=== PATIENT | female | born 1990 | race Caucasian/White ===

== ENCOUNTER 2024-09-23 12:52 | Emergency (ER) | payer OTHER, SELFPAY ==
--- NOTE | ~2024-09-23 | XR_ITS ---
XR hand RT min 3V 09/23/2024 13:30 INDICATION: Right hand pain with swelling. PROCEDURE: 3 views right hand COMPARISON: No prior studies for comparison. FINDINGS: Fracture, dislocation or subluxation is not identified. The soft tissues appear within norm al limits. No foreign bodies are identified. IMPRESSION: 1: NO ACUTE BONE OR JOINT ABNORMALITY IDENTIFIED. Reviewed, dictated and finalized at location A.
--- NOTE | 2024-09-23 13:05 | ED_ITS ---
HPI - Extremity Problem General Chief complaint: Extremity Injury, Upper Stated complaint: swollen rt arm Time Seen by Provider: 09/23/24 13:04 Source: patient Mode of arrival: ambulatory Limitations: no limitations History of Present Illness HPI Narrative: Samantha is a 33-year-old female patient presenting to the clinic today with complaints of right shoulder, elbow, wrist, and hand pain. 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 No known injury to the extremity however she has had previous fracture in her hand. Has swelling and bruising to the right hand. Denies any known injury recently. Has a PCP appointment on October 04 to establish care. Related Data Allergies Allergy/AdvReac Type Severity Reaction Status Date / Time latex Allergy Intermediate Rash Verified 09/23/24 13:18 Review of Systems Review of Systems: Pertinent positives per HPI. Patient denies any fever, chills, rash, headache, visual changes, dizziness, cough, runny nose, sore throat, shortness of breath, chest pain, palpitations, nausea, vomiting, diarrhea, constipation, abdominal pa in, or any urinary issues. PMFSH Comments At the time of my signature, I reviewed and agree with the nursing past medical, surgical, social, and family history. There is no relevant family history pertinent to the patient complaint. Exam Narrative: General: Well-developed, well nourished, in no apparent distress Head: Normocephalic, atraumatic. Cardio: Regular rate and rhythm, s1 and s2 normal, no murmur appreciated. Resp: Clear to auscultation bilaterally, no rhonchi, rales, wheezing or rubs. Musculoskeletal: No deformity,tender to palpation over the posterior lateral cervical portion of the trapezius musculature, pain with turning her head to the right side against resistance, no pain when turning her head to the left side against resistance, positive Tinel's in the elbow and wrist, tenderness to palpation over the anterior shoulder, pain to the posterior and anterior shoulder with empty can, full can, cross arm, and posterior reach, pain in her shoulder with raising her arm above her head, limited range of motion due to pain, hand grasp is weaker and the right hand when compared to the left hand, peripheral pulse strong, no edema, no cyanosis, normal gait and station Course Course Emergency Course: Portions of this record may have been created with voice recognition software. Level of Care: Express Care Visit Vital Signs Vital signs: Vital Signs Temperature 36.6 C 09/23/24 13:14 Pulse Rate 78 09/23/24 13:14 Respiratory Rate 16 09/23/24 13:14 Blood Pressure 143/73 H 09/23/24 13:14 Pulse Oximetry 100 09/23/24 13:14 Oxygen Delivery Room Air 09/23/24 13:14 Temperature 36.6 C 09/23/24 13:14 Pulse Rate 78 09/23/24 13:14 Respiratory Rate 16 09/23/24 13:14 Blood Pressure 143/73 H 09/23/24 13:14 Pulse Oximetry 100 09/23/24 13:14 Oxygen Delivery Room Air 09/23/24 13:14 Vital signs reviewed MDM - Extremity (Nontraumatic) MDM Narrative Medical decision making narrative: At the time of visit patient is resting comfortably on the exam table. Patient appears to be nontoxic. Diagnostics: X-ray the right hand was performed due to pain, bruising, and swelling. X-ray was negative for any acute fracture or malalignment. Plan: I suspect patient a posterior lateral cervical trapezius strain, shoulder tendinitis, wrist tendinitis, and pain/hand swelling. May need further testing for carpal tunnel syndrome. Recommend wearing a cock-up splint and taking Medrol Dosepak and a muscle relaxer and follow-up with PCP as scheduled. Work note was given with restrictions. Arm sling was given. Ice pack was given. Supportive measures were discussed with the patient and they voiced understanding discharge instructions and agrees to treatment plan. Return precautions reviewed Differential Diagnosis Differential diagnosis: Likely gout and other (Shoulder tendinitis, cervical strain, rotator cuff tear, cervical radiculopathy, carpal tunnel syndrome, wrist tendinitis, arthritis) Discharge Plan Discharge Clinical Impression: Right wrist tendinitis, Right shoulder tendinitis Posterolateral cervical muscle strain Qualifiers: Encounter type: initial encounter Qualified Code(s): S16.1XXA - Strain of muscle, fascia and tendon at neck level, initial encounter Patient Disposition: Home Condition: Stable Instructions: Antibiotic Form, Cervical Strain (ED), Rotator Cuff Tendinitis (ED), Tendinitis (ED) Additional Instructions: X-ray of the right hand was negative for any sign of fracture or malalignment Wear arm sling for 3-5 days for comfort May purchase a cock-up splint for the right wrist-may wear during the day while working but recommend wearing this at night time before bed Take any prescription medication only as prescribed-Medrol Dosepak and cyclobenzaprine Be mindful of sedation precautions given to you if taking a muscle relaxer. May use heat to sore muscles and ice to the affected area Consider massage or chiropractor adjustment if this was discussed with provider May use blue emu, lidocaine patches, or asper cream to affected area- do not apply heat or ice directly over cream- can cause burn. Complete appropriate neck stretching exercises. Work note was given. Follow up with your PCP in 3-5 days if symptom persist. Patient Language: Vietnamese Prescriptions: New methylprednisolone [Medrol (Mk)] 4 mg tablets,dose pack See Rx Instructions PO .COMPLEX Qty: 21 0RF Rx Instructions: orally per package directions cyclobenzaprine 10 mg tablet 10 mg PO Q8H PRN (Reason: muscle spasm) 7 Days Qty: 21 0RF Follow-up/Referrals: UNKNOWN,DOCTOR [Non-Staff] - Stand Alone Forms: Work/School Release IP Time of Disposition: 13:42 Quality NIHSS Nursing Documentation ED NIHSS nursing documentation: reviewed/agree
[2024-09-23 13:14] VITALS: BP 143/73; PULSE 78; RESP 16; TEMP 36.6; O2SAT 100
== END 2024-09-23 13:57 | disposition home or self-care (01) ==
PROVIDERS: Emergency Provider Nurse Practitioner Family
DX: M67.833 Other specified disorders of tendon, right wrist (principal); M75.81 Other shoulder lesions, right shoulder; S16.1XXA Strain of muscle, fascia and tendon at neck level, initial encounter; X58.XXXA Exposure to other specified factors, initial encounter
CPT/HCPCS: 73130; 99203; A4565; G0463

== ENCOUNTER 2025-01-05 14:47 | Emergency (ER) | payer MEDICAID, SELFPAY ==
--- OUTSIDE RECORDS SUMMARY | 2025-01-05 14:51 | XMS_ITS | Clinical Summary ---
Author Organization [facility] Address [address] [place] [address] Phone Care Team Providers Care Air/Ocean Export Clerk Name Role Phone Provider, None Primary Care Provider Unavailabl e Allergies No known active allergies Medications No known medications Encounters Date Type Department Care Team Description 10/10/2024 Travel 10/10/2024 Transcribe Orders [facility] Scheduling [address] [place] [id number] Janeth Mosley MD Cervical radiculopathy (Primary Dx) from Last 3 Months Social History Tobacco Use Types Packs/Day Years Used Date Smoking Tobacco: Every Day Cigarettes Smokeless Tobacco: Never Alcohol Use Standard Drinks/Week Comments Yes 0 (1 standard drink = 0.6 oz pur e alcohol) socially Comments No Sex and Gender Information Value Date Recorded Sex Assigned at Not on file Legal Sex Female 7:19 PM CDT Gender Identity Not on file Sexual Orientation Not on file Last Filed Vital Signs Vital Sign Reading Time Taken Comments Blood Pressure 115/70 05/20/2019 8:32 PM INSURANCE ACCOUNT MANAGER Pulse 98 05/20/2019 8:32 PM INSURANCE ACCOUNT MANAGER Temperature 37.7 C (99.9 F) 05/20/2019 8:32 PM INSURANCE ACCOUNT MANAGER Respiratory Rate 16 05/20/2019 8:32 PM INSURANCE ACCOUNT MANAGER Oxygen Saturation 99% 05/20/2019 8:32 PM INSURANCE ACCOUNT MANAGER Inhaled Oxygen Concentration - - Weight 74.8 kg (165 lb) 05/20/2019 6:44 PM INSURANCE ACCOUNT MANAGER Height 163.8 cm (5' 4.5) 05/20/2019 6:44 PM INSURANCE ACCOUNT MANAGER Body Mass Index 27.88 05/20/2019 6:44 PM INSURANCE ACCOUNT MANAGER Plan of Treatment Health Maintenance Due Date Last Done Comments Hepatitis C Virus (HCV) Screening 1988 TdaP Immunization 1988 Hepatitis B Immunization (4 of 4 - 4-dose series) 02/27/1998 02/08/1998, 01/02/1998, 02/23/1997 Pap Smear 2009 Human Papillomavirus (HPV) Immunization (1 - 3-dose SCDM series) 11/27/2015 Cervical Cancer Screening (CCS) 2018 HPV/Cotest 2018 Influenza Immunization (#1) 2024 02/17/2024 SARS-COV-2 Immunization ( season) 2024 Respiratory Syncytial Virus (RSV) Immunization (Adult) (1 - 1-dose 75+ series) 11/27/2063 DTaP/Tdap/Td Immunization Discontinued 2003, 03/20/1994, 01/28/1994, Additional history exists Meningococcal Immunization (ACWY) Aged Out No longer eligible based on patient's age to complete this topic Pneumococcal Immunization Combined Aged Out No longer eligible based on patient's age to complete this topic Rotavirus Immunization Aged Out No lo nger eligible based on patient's age to complete this topic Insurance MEDICAID [employer] Care Teams Air/Ocean Export Clerk Relationship Specialty Start Date End Date Provider, None [place] PCP - General 05/20/19
--- OUTSIDE RECORDS SUMMARY | 2025-01-05 14:51 | XMS_ITS | Encounter Summary ---
Author Organization [facility] Address [address] [place] [address] Phone Care Team Providers Care Solar Field Installation Crew Member Name Role Phone Provider, None Primary Care Provider Unavailabl e Encounter Details Date Type Department Care Team (Late st Contact Info) Description 08/18/2022 Lab Requisition [facility] [address] [place] [id number] Ellie Melendez, MANAGER FIELD SALES, MASTER PLUMBER [address] [place] [address] COVID-19 Social History Tobacco Use Types Packs/Day Years [...] on file Sexual Orientation Not on file COVID-19 Exposure Response Date Recorded In the last 10 days, have yo u been in contact with someone who was confirmed or suspected to have Coronavirus/COVID-19? No / Unsure 08/18/2022 8:45 AM CDT documented as of this encounter Plan of Treatment Not on file documented as of this encounter Procedures Procedure Name Priority Date/Time Associated Diagnosis Comments SARS-COV-2 BY MOLECULAR Routine 08/18/2022 8:30 AM CDT COVID-19 documented in this encounter Results * SARS-COV-2 BY MOLECULAR (08/18/2022 8:30 AM CDT) SARSCOV2 NOT DETECTED (Referen ce Range for this test is Not Detected ) [facility] FAST DX 08/19/2022 10:23 PM CDT [facility] Comment:This test was perfor med by a RT-PCR method. Other No Phlebotomy Charged / Unknown 08/18/2022 8:30 AM CDT 08/18/2022 12:48 PM CDT Narrative [facility] - 08/19/2022 10:23 PM CDT Authorized Fact Sheets about this test for providers and patients are available at: https://www.fda.gov/medical-devices/btwbywtwj-smctneigqy-jadtxpm-devices/emergen cy-us e-authorizations us Ellie Melendez MANAGER FIELD SALES, MASTER PLUMBER MICROBIOLOGY - GENE RAL ORDERABLES Final Result [facility] [address] [place] [address], documented in this encounter Visit Diagnoses Diagnosis COVID-19 documented in this encounter Additional Health Concerns Infection Onset Date Last Indicated Resolved Time COVID - 19 08/18/2022 08/18/2022 08/28/2022 12:1 6 AM CDT documented as of this encounter Care Teams Solar Field Installation Crew Member Relationship Specialty Start Date End Date Provider, None [place] PCP - General 05/20/19 documented as of this encounter
--- NOTE | 2025-01-05 15:00 | ED_ITS ---
HPI - Dental/Oral General Chief complaint: Dental/Oral Stated complaint: tooth pain Time Seen by Provider: 01/05/25 15:20 Source: patient Mode of arrival: ambulatory Limitations: no limitations History of Present Illness HPI Narrative: Samantha is a 34-year-old female patient presenting to the clinic today with complaints of right upper dental pain. She reports she thinks she is developing abscess. Pain is been going on for the past 1.5 week. No fevers, chills, body aches. Does have a dentist but she has not scheduled a appointment Related Data Allergies Allergy/AdvReac Type Severity Reaction Status Date / Time latex Allergy Intermediate Rash Verified 01/05/25 15:06 Review of Systems Review of Systems: Pertinent positives per HPI. Patient denies any fever, chills, rash, headache, visual changes, dizziness, cough, runny nose, sore throat, shortness of breath, chest pain, palpitations, nausea, vomiting, diarrhea, constipation, abdominal pain, or any urinary issues. PMFSH Comments At the time of my signature, I reviewed and agree with the nursing past medical, surgical, social, and family history. There is no relevant family history pertinent to the patient complaint. Exam Narrative: General: Well-developed, well nourished, in no apparent distress Head: Normocephalic, atraumatic Eyes: Pupils equally round and reactive to light bilaterally, EOM intact, sclera and conjunctive clear, no discharge, lids normal Ears: TMs intact and clear, ear canals clear, no drainage, grossly hearing normal. Nose: Nares patent, no discharge, no inflammation, no sinus tenderness. Mouth: Oropharynx without lesions or masses, poor dentition, MMM. Mild swelling around the gingival area of tooth number 1-tenderness to palpation without fluctuance Neck: Supple, trachea midline, no enlargement of anterior or posterior cervical nodes, no thyroid masses or goiter palpable. Cardio: Regular rate and rhythm, s1 and s2 normal, no murmur appreciated. Resp: Clear to auscultation bilaterally anteriorly and posteriorly, no rhonchi, rales, wheezing or rubs Course Course Emergency Course: Portions of this record may have been created with voice recognition software. Level of Care: Express Care Visit Vital Signs Vital signs: Vital Signs Temperature 36.6 C 01/05/25 15:07 Pulse Rate 69 01/05/25 15:07 Respiratory Rate 18 01/05/25 15:07 Blood Pressure 108/73 01/05/25 15:07 Pulse Oximetry 100 01/05/25 15:07 Oxygen Delivery Room Air 01/05/25 15:07 Temperature 36.6 C 01/05/25 15:07 Pulse Rate 69 01/05/25 15:07 Respiratory Rate 18 01/05/25 15:07 Blood Pressure 108/73 01/05/25 15:07 Pulse Oximetry 100 01/05/25 15:07 Oxygen Delivery Room Air 01/05/25 15:07 Vital signs reviewed MDM - Dental/Oral MDM Narrative Medical decision making narrative: At the time of visit patient is resting comfortably on the exam table. Patient appears to be nontoxic. Complaints of right upper dental pain. She reports she thinks she is developing abscess. Pain is been going on for the past 1.5 week. No fevers, chills, body aches. Does have a dentist but she has not s cheduled a appointment Plan: I suspect patient has a dental infection. Prescription for Augmentin was sent to the pharmacy. Supportive measures were discussed with the patient and they voiced understanding discharge instructions and agrees to treatment plan. Return precautions reviewed Differential Diagnosis Differential diagnosis: Likely gingival abscess, dental caries, toothache, dental abscess, fracture of tooth and aphthous ulcer Discharge Plan Discharge Clinical Impression: Dental infection Patient Disposition: Home Condition: Stable Instructions: Antibiotic Form, Toothache (ED) Additional Instructions: Take medications as prescribed-Augmentin Increase fluids and stay well hydrated May take Tylenol/Motrin as needed for pain or fever May apply Orajel to the affected area to help alleviate pain May apply warm or cool compress to the affected area to help alleviate pain Follow-up with your dentist as soon as possible Patient Language: Bengali Prescriptions: New amoxicillin-pot clavulanate 875-125 mg tablet 1 tablet PO Q12H 10 Days Qty: 20 0RF Follow-up/Referrals: UNKNOWN,DOCTOR [Primary Care Provider] Time of Disposition: 15:35 Quality NIHSS Nursing Documentation ED NIHSS nursing documentation: reviewed/agree
[2025-01-05 15:07] VITALS: BP 108/73; PULSE 69; RESP 18; TEMP 36.6; O2SAT 100
== END 2025-01-05 15:43 | disposition home or self-care (01) ==
PROVIDERS: Emergency Provider Nurse Practitioner Family
DX: K04.7 Periapical abscess without sinus (principal)
CPT/HCPCS: 99213; G0463